=== PATIENT | female | born 1950 | race Caucasian/White ===

== ENCOUNTER 2025-09-13 11:03 | Outpatient (CLI) | payer OTHER, MEDICAID ==
[2025-09-13] MEDS ORDERED: ALBUTEROL SULF 2.5 MG/0.5ML(0.5%) NEB SOLN ONE (11:27)
--- NOTE | 2025-09-19 11:32 | DVHNC2 ---
Procedure - Date of service: September 13, 2025 Pulmonary function test interpretation: No obstructive or restrictive ventilatory defect. Significant bronchodilator response. FVC improved by 100 mL. FEV1 improved by 160 mL. No significant bronchodilator response. Patient unable to do nitrogen washout technique. Diffusion capacity is within normal limits, 83% of predicted. Procedure Codes: CPT 54099-04 CPT 38067-93 CPT 25847-76 Visit Coding Pulmonary Billing Provider: BLANQUITA ROTH MD Date of Service if different f: Sep 13, 2025 Common Visit Codes: PROCEDURE ONLY Pulmonary Procedure Codes: 17151-58- SPIROMETRY, 17210-88- LUNG VOLUME, 72911-45- DIFFUSION CAPACITY BLANQUITA ROTH MD Sep 19, 2025 11:32
== END 2025-09-13 17:00 | disposition home or self-care (01) ==
LOC: RT 11:03
PROVIDERS: ATTEND Internal Medicine Pulmonary Disease
DX: J44.9 Chronic obstructive pulmonary disease, unspecified (principal); Z87.891 Personal history of nicotine dependence
CPT/HCPCS: 94060; 94727; 94729